=== PATIENT | female | born 1990 | race Two or more races ===

== ENCOUNTER 2020-10-28 14:32 | Outpatient (CLI) | payer OTHER | END 2020-10-28 14:45 | disposition home or self-care (01) | LOC: RAD 14:32 | PROVIDERS: ATTEND Specialist | DX: R07.89 Other chest pain (principal); U07.1 COVID-19 ==

== ENCOUNTER 2024-06-22 10:19 | Outpatient (CLI) | payer OTHER | END 2024-06-22 10:35 | disposition home or self-care (01) | LOC: MRI 10:19 | PROVIDERS: ATTEND Physical Medicine & Rehabilitation | DX: M54.50 Low back pain, unspecified (principal); M54.6 Pain in thoracic spine; M17.12 Unilateral primary osteoarthritis, left knee; M54.16 Radiculopathy, lumbar region | CPT/HCPCS: 72148 ==